=== PATIENT | male | born 1950 | race Caucasian/White ===

== ENCOUNTER → 2019-01-30 13:16 | Outpatient (CLI) | payer OTHER, SELFPAY ==
[2019-01-30 14:31] LABS: Add Manual Diff / Slide Review NO; Basophils Absolute Auto 100 /uL (0-100); Eosinophils Absolute Auto 300 /uL (0-450); Eosinophils Percent Auto 3.7 % (2-4); Hematocrit 47.2 % (41-53); Hemoglobin 16.4 g/dL (13.5-17.5); Lymphocytes Absolute Auto 2200 /uL (1100-4500); Lymphocytes Percent Auto 30.4 % (25-40); Mean Corpuscular HGB Conc 34.7 % (30-36); Mean Corpuscular Hemoglobin 34.9 PG (26-34); Mean Corpuscular Volume 100.8 fL (80-100); Monocytes Absolute Auto 1300 /uL (0-900); Monocytes Percent Auto 17.9 % (3-14); Neutrophils Absolute Auto 3400 /uL (1500-7000); Platelet Count 131 X10^3/uL (150-400); Red Blood Cell Count 4.68 X10^6/uL (4.5-5.9); Red Cell Distribution Width 14.4 % (11.6-14.8); White Blood Cell Count 7.3 X10^3/uL (4.5-11.0)
[2019-01-30 16:14] LABS: BUN Creatinine Ratio 26.7 (6-22); Blood Urea Nitrogen 16 mg/dL (9-20); Calcium 9.6 mg/dL (8.4-10.2); Carbon Dioxide 31 mmol/L (22-32); Chloride 100 mmol/L (98-107); Estimated Glomerular Filt Rate > 60.0 mL/min (>60); Glucose 114 mg/dL (80-110); HEMOLYSIS < 15 (0-50); Potassium 4.4 mmol/L (3.4-5.1); Sodium 138 mmol/L (137-145)
== END ==
PROVIDERS: Family Provider Internal Medicine; PCP Internal Medicine; Visit Provider Orthopaedic Surgery Orthopaedic Surgery of the Spine
DX: Z01.818 Encounter for other preprocedural examination (principal); Z01.812 Encounter for preprocedural laboratory examination; N39.9 Disorder of urinary system, unspecified; R73.9 Hyperglycemia, unspecified; Z13.1 Encounter for screening for diabetes mellitus
CPT/HCPCS: 36415; 80048; 85025; 93005

== ENCOUNTER 2019-02-19 10:51 | Inpatient (IN) | payer OTHER, SELFPAY ==
[2019-02-08 09:50] VITALS: BMI 38.0
[2019-02-19] VITALS (17 sets, daily range): BP systolic 120–152; BP diastolic 73–100; PULSE 61–93; RESP 9–20; TEMP 36.1–36.7; O2SAT 88–98; BMI 37.3
--- NOTE | 2019-02-19 | DI.RAD.S_ITS ---
PROCEDURE: XR CERVICAL SPINE 2V OR 3V INDICATIONS: C5-6, C6-7 ACDF WITH ANTERIOR INSTRUMENTATION TECHNIQUE: 3 operative view(s) of the cervical spine were acquired. COMPARISON: None. FINDINGS: Operative images demonstrate ACDF at C5-C7 using anterior plate and screw fixation and interbody bone graft material. There is no radiographic evidence of complications. IMPRESSION: Operative imaging demonstrates ACDF at C5-C7. Dictated by: Morris Dumont M.D. on 02/19/2019 at 16:55 Approved by: Morris Dumont M.D. on 02/19/2019 at 16:56
[2019-02-19] MEDS: LACTATED RINGERS 1,000 ML 42 ML IV ×3 (11:57→17:22)
--- NOTE | 2019-02-19 14:29 | PM.PREOP ---
Pre-operative Note Interval Note History & Physical reviewed/Exam performed by Physician: Yes Changes to H&P: No
[2019-02-19] MEDS: CEFAZOLIN 2 GM/100 ML FROZ.PIGGY IV ×2 (14:39→23:12)
--- NOTE | 2019-02-19 15:12 | SUR.OPER ---
Supine on padded OR bed, head on gel doughnut with towel roll under shoulders, bilateral arm padded and tucked at side, tape from shoulder to foot of bed to provide traction,legs uncrossed, safety belt at thigh, tape over blanket over lower legs .
--- NOTE | 2019-02-19 16:51 | P.OP_ITS ---
Operative Date/Time/Diagnoses Date of procedure: 02/19/19 Time of procedure: 14:09 Pre-op diagnosis: 1. C5-6, C6-7 spinal stenosis 2. C5-6, C6-7 spondylosis with radiculopathy Post-op diagnosis: same Procedure & Clinicians Procedure: 1. C5-6 C6-7 anterior cervical diskectomy and fusion 2. C5-6 C6-7 anterior interbody cage placement 3. C5-6 C6-7 anterior instrumentation with plate and screw placement in C5-C6 and C7 vertebrae 4. Utilization of microsurgical technique and operating microscope Same procedure as scheduled: Yes Indications: Patient has been having chronic neck pain and worsening cervical radiculopathy. Patient failed multiple conservative management with worsening pain weakness and numbness in her upper extremity. Patient has been having difficulty performing activity of daily living. After discussing risks benefits of treatment options, patient elected proceed with surgery. Surgeon: Susannah De La Garza Clinical Material Handler: Michelle Mayorga Click Yes if Unassisted: No Anesthesia Type: General Operative Notes Closure Type: primary Specimen(s): none sent Prosthetic devices, grafts, tissues, transplants, or devices: Extend plate, PEEK cages Estimated Blood Loss (mL): 50 Blood products transfused: none Procedure in detail: Patient was seen in the preoperative area. Risks and benefits of the surgery was discussed with the patient. Operative consent was obtained and placed in the chart. Patient was then taken to the operative room. Prophylactic antibiotic was given less than 0.5 hr prior to skin incision. General anesthesia was administered. Patient was placed into a supine position on her radiolucent table. Bilateral shoulders were taped down to allow proper C- arm imaging. Anterior cervical area was prepped and draped in a sterile fashion. Time-out was performed at this time. Using lateral C-arm imaging, the level between C5 and C7 was identified and marked on patient's neck. A oblique incision from midline towards medial border of sternocleidomastoid muscle was made. The platysma muscle was incised in line with skin incision. Metzenbaum scissor was used to develop the plane between the medial border of sternocleidomastoid d and the strap muscles medially. The carotid sheath and its contents were identified and protected behind the hand- held retractor during the entire case. The plane between the carotid sheath and strap muscles was developed with Metzenbaum scissors. Dissection was made down to the level of the anterior cervical fascia. Longus colli muscle was incised on the anterior aspect of vertebral bodies bilaterally from C5-C7. Spinal needle was placed into the C5-6 disc space and confirmed with lateral C-arm imaging. Using microsurgical technique and operative microscope, anterior cervical diskectomy was performed at C5-6 and C6-7 level. This was done by removing the disc material, removing the anterior and posterior osteophytes posterior longitudinal ligaments along with performing bilateral foraminotomies at both levels. Patient was found to have severe central and foraminal stenosis at both levels. Patient's stenosis was fully decompressed after decompression was completed. After the diskectomy was completed, 2 anterior interbody cages were obtained. The cages were packed with globus via cell bone grafting material. One cage each along with the bone grafting material was then packed into the interbody spaces from C5-C7 with one cage into each interbody level. After the cages were placed, the anterior cervical plate was stabilized to the C5-C7 vertebrae using 2 screws at each each level. Total 6 screws were placed. After confirming placement of the hardware with AP and lateral C-arm imaging, the screws were locked into the plate using the locking mechanism and torque limiting screwdriver. After the hardware was placed and confirmed with AP and lateral C-arm imaging, the wound was irrigated with sterile normal saline. The platysma muscle and the subcutaneous tissue was closed with 2-0 Vicryl. The skin was closed with 4-0 Monocryl and Steri-Strips. A EVA drain was placed deep to the platysma and will be discontinued on postop day 1. Patient tolerated the procedure well. Patient was transferred recovery room in stable condition. There were no complications. Complications: none Condition: stable Disposition: PACU Plan for aftercare: Admit to inpatient hospital
[2019-02-19] MEDS: HYDROMORPHONE 2 MG INJ 0.5 MG IV ×2 (17:14→17:24)
--- NOTE | 2019-02-19 17:41 | SUR.PHASEI ---
Report given to Ela
[2019-02-19] MEDS: OXYCODONE IR 5 MG TABLET 10 MG PO ×2 (19:06→23:38)
[2019-02-19] MEDS: SODIUM CHLORIDE 0.9% 1,000 ML 100 ML IV (21:30)
[2019-02-19] MEDS: SENNOSIDES 8.6 MG TABLET 17.2 MG PO (21:31)
[2019-02-19] MEDS: DOCUSATE 100 MG CAPSULE PO (21:31)
[2019-02-19] MEDS: METOPROLOL IR 50 MG TABLET PO (21:34)
[2019-02-19] MEDS: LOSARTAN 25 MG TABLET PO (21:47)
[2019-02-19] MEDS: ATORVASTATIN 10 MG TABLET PO (21:48)
[2019-02-20] VITALS (7 sets, daily range): BP systolic 120–129; BP diastolic 72–82; PULSE 62–72; RESP 15–18; TEMP 36.7–36.8; O2SAT 88–98
[2019-02-20] MEDS: OXYCODONE IR 5 MG TABLET 10 MG PO ×3 (05:36→13:47)
[2019-02-20] MEDS: SODIUM CHLORIDE 0.9% 1,000 ML 100 ML IV (05:36)
[2019-02-20] MEDS: CEFAZOLIN 2 GM/100 ML FROZ.PIGGY IV (06:57)
[2019-02-20 06:59] LABS: Hematocrit 44.4 % (41-53); Hemoglobin 15.1 g/dL (13.5-17.5)
--- NOTE | 2019-02-20 07:16 | P.PN_ITS ---
Subjective Date Patient Seen: 02/20/19 Time Patient Seen: 07:15 Interval history: Patient is POD#1 s/p ACDF with Dr. De La Garza. Pain was well controlled overnight. Does complain of some muscle spasms between the shoulder blades, but notes improvement in his RUE radicular symptoms. He has not mobil ized with PT yet. No numbness tingling, chest pain or shortness of breath. Exam Vital Signs (past 8 hours): - 02/19/19 23:17 02/20/19 04:42 Temperature 97.8 F 98.1 F Pulse Rate 80 72 Respiratory Rate 20 18 Blood Pressure 137/80 129/82 Pulse Oximetry 92 95 Oxygen Delivery Method Nasal Cannula Oxygen Flow Rate 1.5 Narrative Exam Narrative: 68 year old male resting in bed. Alert and oriented in no acute distress. Soft collar in place. Dressing is intact, significant amount of drainage on dressing. EVA drain in place with 25cc output last shift. SILT in B/L UE. 5/5 health information specialist strength. Objective Labs Result Diagrams: 02/20/19 06:33 Labs: Laboratory Results - last 24 hr 02/20/19 06:33 Hgb 15.1 Hct 44.4 Assessment & Plan Post-op Postoperative Procedures Operation Date: 02/19/19 13:15 Actual Procedures Side Surgeon p C5-6,C6-7 ACDF with anterior instrumentation Susannah De La Garza MD Patient should mobilize with PT today. Vistaril for muscle spasms. Dressing will be changed later today. Discontinue EVA drain. Possible discharge to home later today after PT. Quality VTE Deep Vein Thrombosis/Pulmonary Embolism Present on Admission: No
[2019-02-20] MEDS: ACETAMINOPHEN 325 MG TABLET 650 MG PO (08:24)
[2019-02-20] MEDS: DOCUSATE 100 MG CAPSULE PO (08:25)
[2019-02-20] MEDS: hydrOXYzine pamoate 25 MG CAPSULE PO ×2 (08:25→13:47)
[2019-02-20] MEDS: PANTOPRAZOLE 40 MG TABLET PO (08:25)
[2019-02-20] MEDS: ALLOPURINOL 300 MG TABLET PO (08:27)
[2019-02-20] MEDS: NIACIN 500 MG TABLET 1500 MG PO (08:27)
--- NOTE | 2019-02-20 10:59 | OT.IP.EVAL ---
Current Diagnoses Other spondylosis with radiculopathy, cervical region (02/19/19) Spinal stenosis, cervical region (02/19/19) Surgery Performed Operation Date: 02/19/19 13:15 Actual Procedures p C5-6,C6-7 ACDF with anterior instrumentation - Susannah De La Garza MD Past Medical History (Last Updated 02/08/19 @ 10:27 by Lorin Jackson, RN) Acid reflux (Acute) Arthritis (Acute) Blocked tear duct (Acute) Enlarged prostate (Acute) Former smoker (Acute) Gout (Acute) HLD (hyperlipidemia) (Acute) HTN (hypertension) (Acute) Kidney stones (Acute) Nerve pain due to spinal stenosis (Acute) Pre-diabetes (Acute) Schamberg's disease (Acute) Swelling (Acute) Surgical History (Last Updated 02/08/19 @ 10:16 by Lorin Jackson, RN) History of colonoscopy (Acute) No history of previous surgery (Acute) Occupational Therapy Inpatient Evaluation/Re-Eval M1 PT/OT-IP Prior Functional Status Start: 02/20/19 08:40 Freq: NEEDED Status: Active Protocol: Document 02/20/19 10:59 PJM (Rec: 02/20/19 13:12 PJ [id number]) Medical Review Prior Functional Status Medical History Reviewed Yes Diet/Fluid Consistency Regular Communication WNL Mobility and Gait Pt was independent with no assistive device. Activities of Daily Living and IADL's Pt was independent with all ADL/IADL's, including driving. does most o bus operator. Prior Functional Level (Other details) Pt's is retired and can assist PRN after d/c. Social History Household Members spouse Living Arrangements House Number of Floors (Floors) One Floor Number of Stairs To Enter/Railing? 3 JUANJO with no railing Home Environment High Toilet Walk in Shower Tub/Shower Doors Employment Status Retired Additional Social History Comment Pt plans to use shower stall at home. M2 OT-IP Current Condition Start: 02/20/19 12:59 Freq: Status: Active Protocol: Document 02/20/19 10:59 PJM (Rec: 02/20/19 13:12 PJ [id number]) Occupational Therapy Current Condition Current Condition Evaluation Date 02/20/19 Treatment Diagnosis decr'd self care s/p C5-7 ACDF Diagnosis Onset Date 02/19/19 Post Operative Precautions Cervical Spine Precautions Soft Collar for Comfort No Heavy Lifting Log Roll M3 OT- IP Subjective and Pain Start: 02/20/19 12:59 Freq: Status: Active Protocol: Document 02/20/19 10:59 PJM (Rec: 02/20/19 13:12 PJM [id number]) OT- Subjective Occupational Therapy Visit Type Type Initial Evaluation Visit Start Time 10:16 Visit Stop Time 10:59 Total Visit Minutes 43 Notes Pt's here for education this session. Occupational Therapy Visit Comments Patient Comments I think I am ready to go home today. Patient/Caregiver Goals to have less pain and resume independent living at home OT Pain Assessment Pain When Pain Assessed After Treatment Pain Present Pain Present Pain Reported Location posterior neck Intensity 2 Scale Used Numeric (1 - 10) Description Aching Acute M4 OT- IP ADL's Start: 02/20/19 12:59 Freq: Status: Active Protocol: Document 02/20/19 10:59 PJM (Rec: 02/20/19 13:12 PJM [id number]) OT UNY-Mhdv-Lbaijwn General Evaluation Self-Feeding Ability Independent OT ADL-Grooming General Evaluation Grooming Ability Independent Comments OT Grooming Comments after education re: body mechanics and methods to keep collar clean OT ADL-Oral Care General Eval Oral Care Ability Independent Comments Oral Care Comments after education re: body mechanics and methods to keep collar clean OT ADL-Dressing General Eval Upper Body Dressing Ability Standby Assistance Lower Body Dressing Ability Minimal Assistance Areas Needing Assistance Button-Up Shirt/Blouse Underpants/Brief Pants/Shorts Socks Shoes Assistive Devices Dressing Assistive Devices Signalman Comments OT Dressing Comments Pt educated re: adaptive equipt options for lower body dressing. to obtain electric organ assembler for pt. Pt prefers to have assist with socks PRN. Pt will wear slip on sandals. He declines sock aid and long shoe horn. OT ADL-Toileting General Evaluation Toileting Ability Independent OT ADL-Bathing Bathing Type Bathing Type Shower General Evaluation Bathing Ability Minimal Assistance Comments OT Bathing Comments Pt declined to shower here. Provided education re: methods to keep incision dry. Pt/ verbalize understanding. to assist pt PRN. Pt declines long bath sponge. M5 OT- IP IADL's Start: 02/20/19 12:59 Freq: Status: Active Protocol: Document 02/20/19 10:59 PJM (Rec: 02/20/19 13:12 PJ [id number]) OT-Instrumental Activities of Daily Living Deficits IADL Deficits Identified Deficits Home Safety Awareness Awareness of Need for Assistance at Home Good Awareness Ability to Problem Solve Emergency Able to Problem Solve Situations Medication Management Medication Management No Deficits Identified Money Management Money Management No Deficits Identified Meal Preparation Meal Preparation Caregiver Provides Assist Business Data Analyst Business Data Analyst Caregiver Provides Assist Driving Driving Caregiver Provides Assist Driving Comments until pt able M6 OT- IP Functional Cognition Start: 02/20/19 12:59 Freq: Status: Active Protocol: Document 02/20/19 10:59 PJM (Rec: 02/20/19 13:12 PJ [email or web address]) Cognitive Factors Limiting Selfcare Function Cognitive Ability Level of Alertness Alert Patient Orientation Name Age Birthday Month Date Year Day of Week Place Situation Attention Span Ability Capable of Focused Attention Capable of Sustained Attention Ability to Follow Commands Able to Follow Multi-Step Commands Memory Description No Deficits Noted Safety Awareness No Deficits Noted Cognitive Comments Cognitive Assessment Comments Pt verbalizes and demonstrates understanding of all education today OT- Vision and Hearing OT- Hearing Assessment OT- Hearing Assessment WFL OT- Vision Assessment Visual Acuity Glasses All The Time M7 OT- IP Mobility and Balance Start: 02/20/19 12:59 Freq: Status: Active Protocol: Document 02/20/19 10:59 PJM (Rec: 02/20/19 13:12 PJ [email or web address]) OT-Transfer Assessment Sit to and From Stand Sit to and from Stand Independent Transfers Transfer Ability Independent Technique Transfer Destination Chair Transfer Technique Stand Step Pivot Devices Transfer Assistive Devices None OT- Gait Assessment Comments Gait Ability Comments pt up ad darrick in room without a device. OT- Balance Assessment Sitting Balance and Reactions Static Sitting Balance Ability Good Dynamic Sitting Balance Ability Good Standing Balance and Reactions Static Standing Balance Ability Good Dynamic Standing Balance Ability Good M8 OT- IP Objective Assessments Start: 02/20/19 12:59 Freq: Status: Active Protocol: Document 02/20/19 10:59 PJM (Rec: 02/20/19 13:12 PJ [id number]) OT Gross Range of Motion Upper Extremity Range of Motion Assessment Within Functional Limits ROM Impairments Shoulders NT above 90 degrees due to recent C spine surgery. Pt no longer has sharp pain proximal to R elbow. OT Strength Upper Extremity Strength Assessment Within Functional Limits OT- Coordination Assessment Comments Coordination Comments BUE WFL OT-Muscle Tone Assessment Muscle Tone WNL Yes OT Sensation Assessment Comments Summary Comments BUE WNL per pt Edema Edema Absent M9 OT- IP Assessment and Plan Start: 02/20/19 12:59 Freq: Status: Active Protocol: Document 02/20/19 10:59 PJM (Rec: 02/20/19 13:12 PJM [email or web address]) OT Summary Assessment and Plan Potential Rehabilitation Potential Excellent Analytic Complexity at Evaluation Low Summary OT Impairments Pain Progress Towards Goals Safe For Discharge Assessment Summary Low complexity OT assessment and all education completed with pt/ in one visit. Education provided re: C spine precautions, adapted ADL techniques and car transfers. Pt/ verbalize understanding of all education. Pt to d/c home today with 24 hr assist from capable, supportive . Frequency of Treatment Frequency Of Treatment Discharge Discharge Recommendations OT Discharge Recommendations Home with Assistance Home Equipment Needs to obtain electric organ assembler for pt online
--- NOTE | 2019-02-20 11:06 | PT.IIE ---
Current Diagnoses Other spondylosis with radiculopathy, cervical region (02/19/19) Spinal stenosis, cervical region (02/19/19) Surgery Performed Operation Date: 02/19/19 13:15 Actual Procedures p C5-6,C6-7 ACDF with anterior instrumentation - Susannah De La Garza MD Surgical History (Last Updated 02/08/19 @ 10:16 by Lorin Jackson, RN) History of colonoscopy (Acute) No history of previous surgery (Acute) Medical History (Last Updated 02/08/19 @ 10:27 by Lorin Jackson RN) Acid reflux (Acute) Arthritis (Acute) Blocked tear duct (Acute) Enlarged prostate (Acute) Former smoker (Acute) Gout (Acute) HLD (hyperlipidemia) (Acute) HTN (hypertension) (Acute) Kidney stones (Acute) Nerve pain due to spinal stenosis (Acute) Pre-diabetes (Acute) Schamberg's disease (Acute) Swelling (Acute) Physical Therapy Inpatient Evaluation/Re-Eval M1 PT/OT-IP Prior Functional Status Start: 02/20/19 08:40 Freq: NEEDED Status: Active Protocol: Document 02/20/19 10:36 AW (Rec: 02/20/19 11:05 AW [id number]) Medical Review Prior Functional Status Medical History Reviewed Yes Diet/Fluid Consistency Regular Communication Pt able to make needs known Mobility and Gait Pt was independent with no assistive device Activities of Daily Living and IADL's Pt was independent with all ADL/IADL's. Prior Functional Level (Other details) Pt's spouse does most of the meal prep at home Social History Household Members spouse Living Arrangements House Number of Floors (Floors) One Floor Number of Stairs To Enter/Railing? 3 JUANJO with no railing Home Environment High Toilet Tub/Shower Doors Employment Status Retired Additional Social History Comment Pt lives with spouse who is also retired and is available to assist as needed. M2 PT-IP Current Condition Start: 02/20/19 08:40 Freq: NEEDED Status: Active Protocol: Document 02/20/19 10:36 AW (Rec: 02/20/19 11:05 AW [id number]) Physical Therapy Current Condition Current Condition Evaluation Date 02/20/19 Treatment Diagnosis C5-6, C6-7 spinal stenosis s/p ACDF Precautions Cervical Spine Precautions Soft Collar for Comfort No Heavy Lifting Log Roll M3 PT-IP Subjective Start: 02/20/19 08:40 Freq: NEEDED Status: Active Protocol: Document 02/20/19 10:36 AW (Rec: 02/20/19 11:05 AW [id number]) Subjective Physical Therapy Visit Type Type Initial Evaluation Visit Start Time 09:16 Visit Stop Time 19:51 Total Visit Minutes 35 Physical Therapy Visit Comments Patient Comments Pt is feeling good, has not been OOB since surgery, ready to mobilize Patient Goals Pt wishes to return home with the assistance of his spouse. Therapy Pain Assessment Pain When Pain Assessed At Rest Pain Present Pain Present Pain Reported Location posterior neck Intensity 3 Scale Used Numeric (1 - 10) Description Aching Tightness M4 PT-IP Mobility and Gait Start: 02/20/19 08:40 Freq: NEEDED Status: Active Protocol: Document 02/20/19 10:36 AW (Rec: 02/20/19 11:05 AW [id number]) PT-Bed Mobility Assessment Rolling Type of Rolling Log Rolling Level of Assist Standby Assistance Supine to Sit Supine to Sit Standby Assistance Scooting Scooting to Edge of Bed Independent PT-Transfer Assessment Sit to and From Stand Sit to and from Stand Standby Assistance Equipment Transfer Assistive Device Gait Belt Front Wheeled Walker Transfers Transfer Destination Chair Transfer Technique Stand Step Pivot Transfer Ability Level of Assist Standby Assistance Comments Mobility Comments Pt required SBA and verbal cues for sequencing with log roll to right side of bed. Transfers to standing with FWW and to chair using FWW and UE 's also required SBA. Gait Assessment Gait Gait Assistance Required: Standby Assistance 1 Person Assist Distance (Feet) 300 Assistive Devices Assistive Device Gait Belt Front Wheeled Walker Gait Deviations General Gait Pattern Within Normal Limits Comments Gait Comments Pt ambulated 150' with FWW requiring SBA. Pt then walked 150' with no AD, reporting slight feeling of wobbliness but exhibiting no gait deviations. Stair Climbing Assessment Evaluation Level of Assist On Stairs Standby Assistance Devices Stair Climbing Assistive Devices Left Railing Right Railing Technique/Endurance Stair Climbing Direction Ascend and Descend Stair Climbing Technique Step Over Step Number of Steps Climbed 3 Query Text: Stair Climbing Set # Repetitions (reps) 1 Comments Stair Climbing Comments Pt required SBA for stairs using left railing ascending and right railing descending. PT-Balance Assessment Sitting Balance and Reactions Static Sitting Balance Ability Good Dynamic Sitting Balance Ability Good Standing Balance and Reactions Static Standing Balance Ability Good Dynamic Standing Balance Ability Good M5 PT-IP Objective Assessments Start: 02/20/19 08:40 Freq: NEEDED Status: Active Protocol: Document 02/20/19 10:36 AW (Rec: 02/20/19 11:05 AW [id number]) Orientation Orientation/Cognition Level of Alertness Alert Orientation Name Date Place Situation Language Function Ability No Deficits Noted Safety Awareness Understands Safety Issues Memory Description No Deficits Noted Comments Pt A&O with no deficits noted Gross Range of Motion Upper Extremity ROM Impairments Not tested due to ROM restrictions Lower Extremity ROM Assessment Within Functional Limits Strength Lower Extremity Strength Assessment Within Functional Limits Comments Strength Comments UE assessment limited due to post-op precautions Coordination Assessment Gross Coordination Gross Coordination WNL Sensation Assessment Sensation Gross Sensation WNL Muscle Tone Muscle Tone WNL Yes M6 PT-IP Treatment Start: 02/20/19 08:40 Freq: NEEDED Status: Active Protocol: Document 02/20/19 10:36 AW (Rec: 02/20/19 11:05 AW [id number]) Physical Therapy Treatment Education Education Provided Precautions Post-Op Packet Safety Brace Education Donning Gooding Patient Caregiver M7 PT-IP Assessment and Plan Start: 02/20/19 08:40 Freq: NEEDED Status: Active Protocol: Document 02/20/19 10:36 AW (Rec: 02/20/19 11:05 AW [id number]) PT Summary Assessment and Plan Potential Rehabilitation Potential Excellent Status of Condition at Evaluation Evolving Summary Impairments Pain ROM Transfers Gait Activity Tolerance Assessment Summary Pt is a 68 yo man seen for PT evaluation on POD1 following ACDF. Pt found resting in bed with soft collar donned. Reviewed precautions and safety with patient, emphasizing limiting cervical range of motion and use of soft collar for comfort, including sleeping since pt indicated he tends to sleep on his side. Pt instructed in log roll technique which he was able to return demonstrate with minimal verbal cues and SBA. Pt and spouse instructed in donning/doffing soft brace. Pt ambulated both with FWW and with no AD; he admitted feeling more uncertain without AD but exhibited no gait deviations. Spouse is available to assist as needed at home. Pt interested in OT consult for bathing/dressing assistance. PT recommendation is for discharge to home with spouse assist. Goals Bed Mobility Goal Independent Transfer Goal Independent Gait Goal Independent Gait Distance 400 Other Goals Pt will ascend/descend 3 steps with hand-hold assist or no assist/no rails. Days to Meet Goals 1 Frequency of Treatment Frequency Of Treatment Twice a Day Treatment Plan Physical Therapy Treatment Plan Bed Mobility Training Transfer Training Gait Training Post Op Education Discharge Planning Hot or Cold Pack Neuromuscular Re-ed Coordination Retraining Manual Therapy Recommendations To Nursing Amount of Assist Needed Standby Assistance 1 Person Assist Discharge Recommendations PT Discharge Recommendations Home with Assistance Equipment Needed for Home Before May require FWW. Discharge
--- NOTE | 2019-02-20 11:41 | PT.IIE ---
Addendum entered and electronically signed by Emilia Burroughs PT 02/20/19 12:03: Upon further discussion, pt and spouse noted they have trekking poles which pt is accustomed to using. PT observed pt with trekking poles which adequately improved pt's stability with good maintenance of neutral posture. Pt will not require FWW at discharge. Original Note: Current Diagnoses Other spondylosis with radiculopathy, cervical region (02/19/19) Spinal stenosis, cervical region (02/19/19) Surgery Performed Operation Date: 02/19/19 13:15 Actual Procedures p C5-6,C6-7 ACDF with anterior instrumentation - Susannah De La Garza MD Surgical History (Last Updated 02/08/19 @ 10:16 by Lorin Jackson RN) History of colonoscopy (Acute) No history of previous surgery (Acute) Medical History (Last Updated 02/08/19 @ 10:27 by Lorin Jackson RN) Acid reflux (Acute) Arthritis (Acute) Blocked tear duct (Acute) Enlarged prostate (Acute) Former smoker (Acute) Gout (Acute) HLD (hyperlipidemia) (Acute) HTN (hypertension) (Acute) Kidney stones (Acute) Nerve pain due to spinal stenosis (Acute) Pre-diabetes (Acute) Schamberg's disease (Acute) Swelling (Acute) Physical Therapy Inpatient Evaluation/Re-Eval M1 PT/OT-IP Prior Functional Status Start: 02/20/19 08:40 Freq: NEEDED Status: Active Protocol: Document 02/20/19 10:36 AW (Rec: 02/20/19 11:05 AW [id number]) Medical Review Prior Functional Status Medical History Reviewed Yes Diet/Fluid Consistency Regular Communication Pt able to make needs known Mobility and Gait Pt was independent with no assistive device Activities of Daily Living and IADL's Pt was independent with all ADL/IADL's. Prior Functional Level (Other details) Pt's spouse does most of the meal prep at home Social History Household Members spouse Living Arrangements House Number of Floors (Floors) One Floor Number of Stairs To Enter/Railing? 3 JUANJO with no railing Home Environment High Toilet Tub/Shower Doors Employment Status Retired Additional Social History Comment Pt lives with spouse who is also retired and is available to assist as needed. M2 PT-IP Current Condition Start: 02/20/19 08:40 Freq: NEEDED Status: Active Protocol: Document 02/20/19 10:36 AW (Rec: 02/20/19 11:05 AW [id number]) Physical Therapy Current Condition Current Condition Evaluation Date 02/20/19 Treatment Diagnosis C5-6, C6-7 spinal stenosis s/p ACDF Precautions Cervical Spine Precautions Soft Collar for Comfort No Heavy Lifting Log Roll M3 PT-IP Subjective Start: 02/20/19 08:40 Freq: NEEDED Status: Active Protocol: Document 02/20/19 10:36 AW (Rec: 02/20/19 11:05 AW [id number]) Subjective Physical Therapy Visit Type Type Initial Evaluation Visit Start Time 09:16 Visit Stop Time 19:51 Total Visit Minutes 35 Physical Therapy Visit Comments Patient Comments Pt is feeling good, has not been OOB since surgery, ready to mobilize Patient Goals Pt wishes to return home with the assistance of his spouse. Therapy Pain Assessment Pain When Pain Assessed At Rest Pain Present Pain Present Pain Reported Location posterior neck Intensity 3 Scale Used Numeric (1 - 10) Description Aching Tightness M4 PT-IP Mobility and Gait Start: 02/20/19 08:40 Freq: NEEDED Status: Active Protocol: Document 02/20/19 10:36 AW (Rec: 02/20/19 11:05 AW [id number]) PT-Bed Mobility Assessment Rolling Type of Rolling Log Rolling Level of Assist Standby Assistance Supine to Sit Supine to Sit Standby Assistance Scooting Scooting to Edge of Bed Independent PT-Transfer Assessment Sit to and From Stand Sit to and from Stand Standby Assistance Equipment Transfer Assistive Device Gait Belt Front Wheeled Walker Transfers Transfer Destination Chair Transfer Technique Stand Step Pivot Transfer Ability Level of Assist Standby Assistance Comments Mobility Comments Pt required SBA and verbal cues for sequencing with log roll to right side of bed. Transfers to standing with FWW and to chair using FWW and UE 's also required SBA. Gait Assessment Gait Gait Assistance Required: Standby Assistance 1 Person Assist Distance (Feet) 300 Assistive Devices Assistive Device Gait Belt Front Wheeled Walker Gait Deviations General Gait Pattern Within Normal Limits Comments Gait Comments Pt ambulated 150' with FWW requiring SBA. Pt then walked 150' with no AD, reporting slight feeling of wobbliness but exhibiting no gait deviations. Stair Climbing Assessment Evaluation Level of Assist On Stairs Standby Assistance Devices Stair Climbing Assistive Devices Left Railing Right Railing Technique/Endurance Stair Climbing Direction Ascend and Descend Stair Climbing Technique Step Over Step Number of Steps Climbed 3 Query Text: Stair Climbing Set # Repetitions (reps) 1 Comments Stair Climbing Comments Pt required SBA for stairs using left railing ascending and right railing descending. PT-Balance Assessment Sitting Balance and Reactions Static Sitting Balance Ability Good Dynamic Sitting Balance Ability Good Standing Balance and Reactions Static Standing Balance Ability Good Dynamic Standing Balance Ability Good M5 PT-IP Objective Assessments Start: 02/20/19 08:40 Freq: NEEDED Status: Active Protocol: Document 02/20/19 10:36 AW (Rec: 02/20/19 11:05 AW [id number]) Orientation Orientation/Cognition Level of Alertness Alert Orientation Name Date Place Situation Language Function Ability No Deficits Noted Safety Awareness Understands Safety Issues Memory Description No Deficits Noted Comments Pt A&O with no deficits noted Gross Range of Motion Upper Extremity ROM Impairments Not tested due to ROM restrictions Lower Extremity ROM Assessment Within Functional Limits Strength Lower Extremity Strength Assessment Within Functional Limits Comments Strength Comments UE assessment limited due to post-op precautions Coordination Assessment Gross Coordination Gross Coordination WNL Sensation Assessment Sensation Gross Sensation WNL Muscle Tone Muscle Tone WNL Yes M6 PT-IP Treatment Start: 02/20/19 08:40 Freq: NEEDED Status: Active Protocol: Document 02/20/19 10:36 AW (Rec: 02/20/19 11:05 AW [id number]) Physical Therapy Treatment Education Education Provided Precautions Post-Op Packet Safety Brace Education Donning Bells Patient Caregiver M7 PT-IP Assessment and Plan Start: 02/20/19 08:40 Freq: NEEDED Status: Active Protocol: Document 02/20/19 10:36 AW (Rec: 02/20/19 11:05 AW [id number]) PT Summary Assessment and Plan Potential Rehabilitation Potential Excellent Status of Condition at Evaluation Evolving Summary Impairments Pain ROM Transfers Gait Activity Tolerance Assessment Summary Pt is a 68 yo man seen for PT evaluation on POD1 following ACDF. Pt found resting in bed with soft collar donned. Reviewed precautions and safety with patient, emphasizing limiting cervical range of motion and use of soft collar for comfort, including sleeping since pt indicated he tends to sleep on his side. Pt instructed in log roll technique which he was able to return demonstrate with minimal verbal cues and SBA. Pt and spouse instructed in donning/doffing soft brace. Pt ambulated both with FWW and with no AD; he admitted feeling more uncertain without AD but exhibited no gait deviations. BP monitored throughout session: 121/71 supine, 119/85 sitting, 138/84 standing. SpO2 was 96% after ambulation. Spouse is available to assist as needed at home. Pt interested in OT consult for bathing/dressing assistance. PT recommendation is for discharge to home with spouse assist. Goals Bed Mobility Goal Independent Transfer Goal Independent Gait Goal Independent Gait Distance 400 Other Goals Pt will ascend/descend 3 steps with hand-hold assist or no assist/no rails. Days to Meet Goals 1 Frequency of Treatment Frequency Of Treatment Twice a Day Treatment Plan Physical Therapy Treatment Plan Bed Mobility Training Transfer Training Gait Training Post Op Education Discharge Planning Hot or Cold Pack Neuromuscular Re-ed Coordination Retraining Manual Therapy Recommendations To Nursing Amount of Assist Needed Standby Assistance 1 Person Assist Discharge Recommendations PT Discharge Recommendations Home with Assistance Equipment Needed for Home Before May require FWW. Discharge
--- NOTE | 2019-02-20 13:53 | PC.NURSE ---
Discharge: IV dc'd intact. Drain removed and dressing changed earlier this morning. There was good hemostasis and no drainage on the new dressing at time of discharge. Wearing soft collar for comfort. Reviewed discharge instructions thoroughly with patient and . Given scripts for Vistaril, Oxycodone and Docusate. Reviewed s/sx with which to call MD. Verbalized understanding of d/c instructions and stated no further questions. All belongings collected and sent with patient. Wheeled out to private vehicle by nursing staff.
--- NOTE | 2019-02-20 15:14 | CM.DANOTE ---
DCP/Assessment: Reviewed chart. Patient is a 68yr old male admitted to [facility] for elective ACDF with Dr. De La Garza. PCP listed is Dr. Morrison. Primary payor is 1[facility]. Attempted to meet with patient today. Patient had already discharged from [facility]. Patient seen and cleared by therapy with no identified d/c planning needs. P: Home today. AYUSH Song Discharge Planning/Care Management CM Discharge Assessment Start: 02/20/19 15:13 Freq: Status: Discharge Protocol: Document 02/20/19 15:13 KJS (Rec: 02/20/19 15:14 KJS [id number]) Discharge Planning Assessment Assigned Dermatopathologist AYUSH Song Contact Information Samantha Murray (spouse) [phone] Advance Directives? No: Declines further information, has information at home Advance Directives on File No History Provided By Medical Record Prior Living Arrangements House Household Members spouse Review Status In Process Next Review Type Continued Stay Review Pre-Anesthesia Assessment Start: 02/08/19 09:50 Freq: Status: Discharge Protocol: Document 02/08/19 09:50 CAB (Rec: 02/08/19 10:33 CAB [id number]) Pre-Anesthesia Assessment Patient Also Known As Delacruz (AKA) Patient Information Reviewed Via Phone Assessment Assessment Completed With Patient H&P Completed Within 30 Days Yes Diagnostic Results BMP/CMP CBC EKG Comment Labs/EKG @ 01/30/19 Primary Care Provider Sahil Morrison Seen Specialist in Last 12 Months Yes Specialist Seen Orthopedist Primary Language Macedonian Roof Slater Required No Height 170.18 cm Weight 110.223 kg Body Mass Index (BMI) 38.0 Hearing Ability Normal Visual Assist Glasses Dentition Type Teeth, Natural Present Teeth, Missing Barriers to Learning None Other Aids No Hx Anesthesia Reactions No prior surgical history Hx Family Anesthesia Reaction No Hx Malignant Hyperthermia No Hx Blood Transfusions No Anesthesia Review Requested No alcohol intake current alcohol intake frequency 3 or more drinks per day Smoking Status Former smoker how long ago did patient quit smoking Quit 2014 Substance Use Type does not use Pain Present Pain Reported Musculoskeletal Symptoms Joint Pain Limited Range of Motion Neck Pain Radiating Pain into Limb History of Falling (Recent or History of No ) Patient is completely paralyzed or No completely immobile Mental Status Oriented to own ability Is patient on oxygen? No Does patient have ANNE/SOB No Hx Sleep Apnea No Currently Taking a Beta Tatum Yes: Metoprolol Can You Climb a Flight of Stairs Without Yes SOB Hx Chest Pain No Hx SOB No Hx Syncope or Dizziness No Anti-Coagulant Therapy No Has a Refrigerating Technician No Cardiac Testing No Hx Pacemaker/ICD No Pacemaker Rep Required? No Cardiac Clearance Received Not Applicable Diet Type At Home Regular dysphagia No Genitourinary Symptoms Dribbling Bladder Pattern Nocturia Urinary Catheter Present No Hx Urinary Self Catheterization No Diabetes No: Pre-diabetes Hx Drug Resistant Organism No Presence of External or Internal Medical No Devices Have you traveled outside the [facility] in the last 30 days? Marital Status Lives With spouse Prior Living Arrangements House Number of Floors (Floors) Two Floors Support System Family Friend(s) Spouse Does the Patient Have Assistance After Yes Surgery Patient Discharge Plan Description Return Home Comment Pt advised 1 night length of stay per surgeon Feels Safe in Current Environment Yes Been Physically Hurt or Threatened By a No Person in Current Environment Do you have thoughts of harming yourself None or others? Are you currently considering suicide? No Do you have a plan to hurt yourself or No Plan others? Do You Have Any Spiritual Beliefs That No May Affect Your HC Choices? Do You Have Any Cultural Practices That No May Affect Your HC Choices? Who Can We Speak to About Patient's Care Family, friends Identifying Code for Release of Patient Declines to issue Information Health Care Proxy/Next of Kin Samantha () Health Care Proxy Emergency Contact Name Samantha () Emergency Contact Advance Directives? No: Declines further information, has information at home PAC Instructions Medications to take/avoid Nasal antibiotic No ETOH/petroleum product on skin DOS NPO Post-op transportation Pre-surgical wash Sensory aids Sturdy shoes/comfortable clothes Do not bring valuables and remove jewelry
== END 2019-02-20 13:58 | disposition home or self-care (01) | DRG 473 ==
PROVIDERS: Admitting Provider Orthopaedic Surgery Orthopaedic Surgery of the Spine; Family Provider Internal Medicine; PCP Internal Medicine; Visit Provider Orthopaedic Surgery Orthopaedic Surgery of the Spine
PROC: 0RG20A0 Fusion of 2 or more Cervical Vertebral Joints with Interbody Fusion Device, Anterior Approach, Anterior Column, Open Approach (ICD-10-PCS; principal; 2019-02-19 13:15)
DX: M47.22 Other spondylosis with radiculopathy, cervical region (principal); I10 Essential (primary) hypertension; E78.5 Hyperlipidemia, unspecified; Z87.891 Personal history of nicotine dependence; E66.9 Obesity, unspecified; Z68.37 Body mass index [BMI] 37.0-37.9, adult; M62.838 Other muscle spasm
CPT/HCPCS: 36415; 72040; 76000; 85014; 85018; 94760; 97116; 97161; 97165; 97535; C1776; J0330; J0690; J1100; J1170; J2405; J2704; J3010